=== PATIENT | female | born 1950 | race Two or more races ===

== ENCOUNTER 2020-12-25 17:22 | Emergency (ER) | payer MEDICARE, MEDICAID ==
[~2020-12-25] VITALS: Ht 165.1 cm; Wt 73.0 kg
[2020-12-25] MEDS ORDERED: ELIMC TOP (18:17)
[2020-12-25] MEDS ORDERED: TC1U15 TP (18:17)
[2020-12-25 18:40] VITALS: BP 127/94
== END 2020-12-25 18:41 | disposition home or self-care (01) ==
LOC: ER 17:22
DX: R21 Rash and other nonspecific skin eruption (principal); Z98.890 Other specified postprocedural states
CPT/HCPCS: 99283